=== PATIENT | male | born 1945 | race Caucasian/White ===

== ENCOUNTER 2018-04-21 09:19 | Outpatient (REF) | payer OTHER, SELFPAY ==
[2018-04-21 22:14] LABS: Anion Gap 12.3 mmol/L (3-11); BUN 29 mg/dL (7-18); CO2 23.7 mmol/L (21.0-32.0); CREATININE 1.09 mg/dL (0.70-1.30); Calcium 9.1 mg/dL (8.5-10.1); Chloride 104 mmol/L (98-107); Cholesterol 222 mg/dL (50-200); Glucose 114 mg/dL (70-100); HDL Cholesterol 53 mg/dL (40-60); LDL CHOLESTEROL 153 mg/dL (<100); Potassium 4.1 mmol/L (3.5-5.1); Sodium 140 mmol/L (136-145); Triglyceride 73 mg/dL (30-150)
== END 2018-04-21 09:39 ==
LOC: NCHCN 09:19
PROVIDERS: PCP Internal Medicine; Visit Provider Internal Medicine
DX: E78.6 Lipoprotein deficiency (principal); I10 Essential (primary) hypertension
CPT/HCPCS: 80048; 80061; 83721

== ENCOUNTER 2018-07-01 21:17 | Outpatient (REF) | payer OTHER, SELFPAY ==
[2018-07-01 21:25] LABS: Hemoglobin A1C 5.9 % (4.5-6.2)
== END 2018-07-01 21:37 ==
LOC: NCHCN 21:17
PROVIDERS: PCP Internal Medicine; Visit Provider Internal Medicine
DX: R73.9 Hyperglycemia, unspecified (principal)
CPT/HCPCS: 83036

== ENCOUNTER 2019-08-23 12:07 | Outpatient (REF) | payer OTHER, SELFPAY ==
[2019-08-23 21:57] LABS: Anion Gap 8.3 mmol/L (3-11); BUN 30 mg/dL (7-18); CO2 25.7 mmol/L (21.0-32.0); CREATININE 0.98 mg/dL (0.70-1.30); Calcium 9.2 mg/dL (8.5-10.1); Chloride 103 mmol/L (98-107); Glucose 90 mg/dL (74-106); Potassium 3.9 mmol/L (3.5-5.1); Sodium 137 mmol/L (136-145)
== END 2019-08-23 12:27 ==
LOC: NCHCN 12:07
PROVIDERS: PCP Internal Medicine; Visit Provider Nurse Practitioner Family
DX: M10.9 Gout, unspecified (principal); I10 Essential (primary) hypertension; R73.03 Prediabetes
CPT/HCPCS: 80048; 83036; 84550

== ENCOUNTER 2019-08-29 21:33 | Outpatient (REF) | payer OTHER, SELFPAY ==
[2019-08-29 21:46] LABS: HCT 40.4 % (40.0-50.0); HGB 13.7 g/dL (13.5-17.5); Mean Corp. HGB Concentration 33.9 g/dL (32.0-36.0); Mean Corpuscular Hemoglobin 33.3 pg (27.0-33.0); Mean Corpuscular Volume 98.1 fL (80-95); Platelet Count 161 x1000/uL (130-400); RBC 4.12 m/cumm (4.50-6.00); RBC Distribution Width 13.2 % (11.8-14.1)
[2019-08-29 22:27] LABS: TSH 0.93 uIU/mL (0.36-3.74); Vitamin B12 270 pg/mL (193-986)
[2019-08-31 12:45] LABS: Syphilis Serology (RPR) Negative (Negative)
== END 2019-08-29 21:53 ==
LOC: NCHCN 21:33
PROVIDERS: PCP Internal Medicine; Visit Provider Internal Medicine
DX: D64.9 Anemia, unspecified (principal); R41.3 Other amnesia
CPT/HCPCS: 85027; 82607; 84443; 86592

== ENCOUNTER 2020-11-28 16:11 | Outpatient (REF) | payer OTHER, SELFPAY ==
[2020-11-28 21:31] LABS: Abs Immature Grans 0.02 10^3/uL (0.0-0.06); Absolute Basophil Count 0.04 10^3/uL (0.0-0.2); Absolute Eosinophil Count 0.22 10^3/uL (0.0-0.7); Absolute Lymphocyte Count 0.79 10^3/uL (1.2-3.4); Absolute Monocyte Count 0.81 10^3/uL (0.1-0.8); Absolute Neutrophil Count 4.46 10^3/uL (1.2-6.7); Basophils % 0.6; Eosinophils % 3.5; HCT 36.9 % (40.0-50.0); HGB 12.7 g/dL (13.5-17.5); Immature Grans % 0.3; Lymphocytes % 12.5; MCH 33.2 pg (27.0-33.0); MCHC 34.4 % (32.0-36.0); MCV 96.6 fL (80-95); MPV 11.5 fL (8.0-11.0); Monocytes % 12.8; Neutrophils % 70.3; Nucleated RBC 0 %; Platelet Count 111 10^3/uL (130-400); RBC 3.82 10^6/uL (4.36-5.78); RDW 13.2 % (11.8-14.1); RDW-SD 46.5 fL; WBC 6.34 10^3/uL (4.4-10.8)
[2020-11-28 21:50] LABS: ALT 24 U/L (16-63); AST 21 U/L (15-37); Albumin 3.6 g/dL (3.4-5.0); Alkaline Phosphatase 73 U/L (46-116); Anion Gap 3.8 mmol/L (3-11); BUN 28 mg/dL (7-18); Bilirubin, Total 1.1 mg/dL (0.2-1.0); CO2 25.2 mmol/L (21.0-32.0); CREATININE 1.3 mg/dL (0.70-1.30); Calcium 8.7 mg/dL (8.5-10.1); Chloride 108 mmol/L (98-107); Estimated GFR 54.26 (mL/min/1.73m2); Glucose 92 mg/dL (74-106); Potassium 3.2 mmol/L (3.5-5.1); Sodium 137 mmol/L (136-145); TSH 1.14 uIU/mL (0.36-3.74); Total Protein 6.3 g/dL (6.4-8.2)
== END 2020-11-28 16:12 | disposition home or self-care (01) ==
LOC: NCHCN 16:11
PROVIDERS: PCP Internal Medicine; Visit Provider Internal Medicine
DX: R19.7 Diarrhea, unspecified (principal)
CPT/HCPCS: 80053; 84443; 85025

== ENCOUNTER 2020-12-04 11:53 | Outpatient (REF) | payer OTHER, SELFPAY ==
[2020-12-04 14:56] LABS: C Diff PCR Negative (Negative)
== END 2020-12-04 11:54 | disposition home or self-care (01) ==
LOC: NCHCN 11:53
PROVIDERS: PCP Internal Medicine; Visit Provider Internal Medicine
DX: R19.7 Diarrhea, unspecified (principal)
CPT/HCPCS: 87493

== ENCOUNTER 2020-12-07 14:30 | Outpatient (REF) | payer OTHER, SELFPAY ==
[2020-12-07 16:11] LABS: Iron 88 ug/dL (65-175); Total Iron Binding Capacity 254 ug/dL (250-450); Transferrin Sat 35 % (20-55)
[2020-12-07 16:35] LABS: Folate > 20.0 ng/mL (8.6-20.0)
[2020-12-07 17:12] LABS: Ferritin 344 ng/mL (26-388); Vitamin B12 379 pg/mL (193-986)
== END 2020-12-07 14:31 | disposition home or self-care (01) ==
LOC: NCHCN 14:30
PROVIDERS: PCP Internal Medicine; Visit Provider Nurse Practitioner Family
DX: D64.9 Anemia, unspecified (principal)
CPT/HCPCS: 82607; 82728; 82746; 83540; 83550; 85025; 85045

== ENCOUNTER 2021-03-13 16:33 | Outpatient (REF) | payer OTHER, SELFPAY ==
--- OUTSIDE RECORDS SUMMARY | 2021-03-13 16:35 | XMS_ITS | CCD ---
:1945 Author Care Team Providers Name Role Phone Akin VARGAS MD Attending Physician Unavailable Vital Signs Vital Sign Value Unit Date/Time Recent/Initial? BP Systolic 82 mmHg 12/11/2020 16:29 Initial VS BP Diastolic 54 mmHg 12/11/2020 16:29 Initial VS Respiratory Rate 16 bpm 12/11/2020 16:29 Initial VS Heart Rate 57 bpm 12/11/2020 16:29 Initial VS O2 % BldC Oximetry 99 % 12/11/2020 16:29 Initi al VS BP Systolic 112 mmHg 12/11/2020 16:52 Most Recent VS BP Diastolic 68 mmHg 12/11/2020 16:52 Most Recent VS Respiratory Rate 18 bpm 12/11/2020 16:52 Most Re cent VS Heart Rate 66 bpm 12/11/2020 16:52 Most Recent VS O2 % BldC Oximetry 97 % 12/11/2020 16:52 Most Recent VS Allergies Allergy Code Allergy Type Reaction Status HYDROCODONE 5489 Drug allergy ITCHING Active Procedures Procedure Code Procedure Type Date Colsc Flx w/Rmvl Of Tumor Polyp 81683 CPT 12/11/2020 Lesion Snare Tq Colsc Flx With Directed Submucosal 94533 CPT 12/11/2020 Njx Any Sbst History of Immunizations Unknown or Not Available. Problems Unknown or Not Available. Results Unknown or Not Available. Active Medications Unknown or Not Available. Medications Administered During Visit Unknown or Not Available. Encounters Encounter Diagnosis Diagnosis Code Start Date Other fecal abnormalities R195 12/11/2020 Social History Smoking Status Code Start Date End Date Former smoker [id number] 1965 1987 Patient Decision Aids Unknown or Not Available. Discharge Instructions You were admitted to [facility] on 12/11/2020 13:57 with a principal diagnosis of Other fecal abnormalities You had the following procedures done: Colsc Flx w/Rmvl Of Tumor Polyp Lesion Snare Tq Colsc Flx With Directed Submucosal Njx Any Sbst You were discharged from [facility] on 12/11/2020 17:18 Should you have any questions prior to d ischarge, please contact a member of your healthcare team. If you have left the ho spital and have any questions, please contact your primary care physician. Chief Complaint and Reason For Visit Unknown or Not Available. Function Status Unknown or Not Available. Plan of Care Unknown or Not Available. Referral/Transition of Care Unknown or Not Available.
--- OUTSIDE RECORDS SUMMARY | 2021-03-13 16:35 | XMS_ITS | CCD ---
:1945 Author Care Team Providers Name Role Phone LANDREY Attending Physician Unavailable Vital Signs Unknown or Not Available. Allergies Allergy Code Allergy Type Reaction Status HYDROCODONE 5489 Drug allergy ITCHING Active Procedures Unknown or Not Available. History of Immunizations Unknown or Not Available. Problems Unknown or Not Available. Results FECAL BACTERIAL PATHOGENS BY PCR - Colle ct Date/Time: 11/30/2020 15:00 Test Name Code Test Result Test Units Test Ref Range Salmonella PCR Negative N/A Negative Shigella PCR Negative N/A Negative Campylobacter PCR Negative N/A Negative Shiga Toxin PCR Negative N/A Negative GIARDIA AND CRYPTOSPORIDIUM EXAM (STOOL) - Collect Date/Time: 11/30/2020 15:00 Test Name Code Test Result Test Units Test Ref Range Giardia andCryptosporidium Cryptosporidium Antigen N/A (See Note) Neg and Giardia Antigen Neg Active Medications Unknown or Not Available. Medications Administered During Visit Unknown or Not Available. Encounters Encounter Diagnosis Diagnosis Code Start Date Diarrhea [id number] 11/30/2020 Social History Smoking Status Code Start Date End Date Former smoker [id number] 1965 1987 Patient Decision Aids Unknown or Not Available. Discharge Instructions You were admitted to [facility] on 11/30/2020 06:06 with a principal diagnosis of Diarrhea, unspecified You had the following tests done: FECAL BACTERIAL PATHOGENS BY PCR GIARDIA AND CRYPTOSPORIDIUM EXAM (STOOL) You were discharged from [facility] 01 on 11/30/2020 06:06 Should you have any questions prior to [...]
[2021-03-13 21:54] LABS: Anion Gap 9.7 mmol/L (3-11); BUN 30 mg/dL (7-18); CO2 26.3 mmol/L (21.0-32.0); CREATININE 1.1 mg/dL (0.70-1.30); Calcium 8.9 mg/dL (8.5-10.1); Chloride 105 mmol/L (98-107); Glucose 130 mg/dL (74-106); Potassium 3.5 mmol/L (3.5-5.1); Sodium 141 mmol/L (136-145)
== END 2021-03-13 16:34 | disposition home or self-care (01) ==
LOC: NCHCN 16:33
PROVIDERS: PCP Internal Medicine; Visit Provider Nurse Practitioner Family
DX: R19.7 Diarrhea, unspecified (principal)
CPT/HCPCS: 80048

== ENCOUNTER 2021-07-01 08:38 | Outpatient (REF) | payer MEDICARE, SELFPAY ==
[2021-07-01 21:34] LABS: Anion Gap 7.9 mmol/L (3-11); BUN 38 mg/dL (7-18); CO2 24.1 mmol/L (21.0-32.0); CREATININE 1.3 mg/dL (0.70-1.30); Calcium 8.8 mg/dL (8.5-10.1); Calculated LDL 74 mg/dL (<100); Chloride 104 mmol/L (98-107); Cholesterol 159 mg/dL (<200); Estimated GFR 54.11 (mL/min/1.73m2); Glucose 110 mg/dL (74-106); HDL Cholesterol 61 mg/dL (40-60); Potassium 4.3 mmol/L (3.5-5.1); Sodium 136 mmol/L (136-145); Triglyceride 122 mg/dL (<150)
== END 2021-07-01 08:39 | disposition home or self-care (01) ==
LOC: NCHCN 08:38
PROVIDERS: PCP Internal Medicine; Visit Provider Internal Medicine
DX: I10 Essential (primary) hypertension (principal)
CPT/HCPCS: 80048; 80061

== ENCOUNTER 2021-07-22 20:09 | Outpatient (REF) | payer MEDICARE, SELFPAY ==
[2021-07-22 21:03] LABS: Anion Gap 7.1 mmol/L (3-11); BUN 22 mg/dL (7-18); CO2 28.9 mmol/L (21.0-32.0); CREATININE 1.3 mg/dL (0.70-1.30); Calcium 8.6 mg/dL (8.5-10.1); Chloride 106 mmol/L (98-107); Estimated GFR 54.11 (mL/min/1.73m2); Glucose 92 mg/dL (74-106); Potassium 3.7 mmol/L (3.5-5.1); Sodium 142 mmol/L (136-145)
== END 2021-07-22 20:10 | disposition home or self-care (01) ==
LOC: NCHCN 20:09
PROVIDERS: PCP Internal Medicine; Visit Provider Nurse Practitioner Family
DX: I10 Essential (primary) hypertension (principal)
CPT/HCPCS: 80048

== ENCOUNTER 2022-04-16 17:35 | Outpatient (REF) | payer MEDICARE, SELFPAY ==
[2022-04-16 16:06] LABS: Anion Gap 8.6 mmol/L (3-11); BUN 23 mg/dL (7-18); CO2 26.4 mmol/L (21.0-32.0); CREATININE 1.2 mg/dL (0.70-1.30); Calcium 8.8 mg/dL (8.5-10.1); Chloride 105 mmol/L (98-107); Estimated GFR 63.46 (mL/min/1.73m2); Glucose 114 mg/dL (74-106); Potassium 3.9 mmol/L (3.5-5.1); Sodium 140 mmol/L (136-145); Vitamin B12 322 pg/mL (193-986)
[2022-04-16 16:14] LABS: Uric Acid 5.4 mg/dL (3.5-7.2)
== END 2022-04-16 17:36 | disposition home or self-care (01) ==
LOC: NCHCN 17:35
PROVIDERS: PCP Internal Medicine; Visit Provider Internal Medicine
DX: F03.90 Unspecified dementia, unspecified severity, without behavioral disturbance, psychotic disturbance, mood disturbance, and anxiety (principal); I10 Essential (primary) hypertension; M10.9 Gout, unspecified
CPT/HCPCS: 80048; 82607; 84550

== ENCOUNTER 2022-10-06 13:33 | Outpatient (REF) | payer MEDICARE, SELFPAY ==
[2022-10-06 15:51] LABS: Anion Gap 8.9 mmol/L (3-11); BUN 25 mg/dL (7-18); CO2 25.1 mmol/L (21.0-32.0); CREATININE 1.1 mg/dL (0.70-1.30); Chloride 107 mmol/L (98-107); Estimated GFR 70.44 (mL/min/1.73m2); Glucose 106 mg/dL (74-106); Potassium 4.4 mmol/L (3.5-5.1); Sodium 141 mmol/L (136-145)
[2022-10-06 16:26] LABS: Hemoglobin A1C 5.8 % (<5.7)
== END 2022-10-06 13:34 | disposition home or self-care (01) ==
LOC: NCHCN 13:33
PROVIDERS: PCP Internal Medicine; Visit Provider Internal Medicine
DX: E87.6 Hypokalemia (principal); R73.03 Prediabetes
CPT/HCPCS: 80048; 83036

== ENCOUNTER 2022-11-12 17:33 | Outpatient (REF) | payer MEDICARE, SELFPAY ==
[2022-11-12 21:24] LABS: Anion Gap 8.9 mmol/L (3-11); BUN 28 mg/dL (7-18); CO2 27.1 mmol/L (21.0-32.0); CREATININE 1.2 mg/dL (0.70-1.30); Calcium 9.1 mg/dL (8.5-10.1); Chloride 103 mmol/L (98-107); Estimated GFR 63.46 (mL/min/1.73m2); Glucose 127 mg/dL (74-106); Sodium 139 mmol/L (136-145)
== END 2022-11-12 17:34 | disposition home or self-care (01) ==
LOC: NCHCN 17:33
PROVIDERS: PCP Internal Medicine; Visit Provider Internal Medicine
DX: I10 Essential (primary) hypertension (principal)
CPT/HCPCS: 80048

== ENCOUNTER 2023-04-01 16:53 | Outpatient (REF) | payer MEDICARE, SELFPAY ==
[2023-04-01 20:53] LABS: HCT 40.8 % (40.0-50.0); HGB 14.1 g/dL (13.5-17.5); MCH 34.8 pg (27.0-33.0); MCHC 34.6 % (32.0-36.0); MCV 101 fL (80-95); MPV 10.7 fL (8.0-11.0); Platelet Count 145 10^3/uL (130-400); RBC 4.05 10^6/uL (4.36-5.78); RDW 12.9 % (11.8-14.1); RDW-SD 47.8 fL
[2023-04-01 21:17] LABS: Hemoglobin A1C 5.9 % (<5.7)
[2023-04-01 21:31] LABS: Vitamin B12 530 pg/mL (193-986)
== END 2023-04-01 16:54 | disposition home or self-care (01) ==
LOC: NCHCN 16:53
PROVIDERS: PCP Internal Medicine; Visit Provider Internal Medicine
DX: R73.03 Prediabetes (principal); E53.8 Deficiency of other specified B group vitamins
CPT/HCPCS: 85027; 82607; 83036

== ENCOUNTER 2023-08-14 15:07 | Outpatient (REF) | payer MEDICARE, SELFPAY ==
[2023-08-14 21:13] LABS: Anion Gap 8.5 mmol/L (3-11); BUN 22 mg/dL (7-18); CO2 26.5 mmol/L (21.0-32.0); CREATININE 1.2 mg/dL (0.70-1.30); Calcium 8.8 mg/dL (8.5-10.1); Chloride 106 mmol/L (98-107); Estimated GFR 63.07 (mL/min/1.73m2); Glucose 162 mg/dL (74-106); Potassium 3.8 mmol/L (3.5-5.1); Sodium 141 mmol/L (136-145)
== END 2023-08-14 15:08 | disposition home or self-care (01) ==
LOC: NCHCN 15:07
PROVIDERS: PCP Internal Medicine; Visit Provider Internal Medicine
DX: E87.6 Hypokalemia (principal)
CPT/HCPCS: 80048

== ENCOUNTER 2024-08-02 16:42 | Outpatient (REF) | payer MEDICARE, MEDICAID, SELFPAY | END 2024-08-02 16:43 | disposition home or self-care (01) | LOC: NCHCN 16:42 | PROVIDERS: PCP Internal Medicine; Visit Provider Physician Assistant | DX: R39.11 Hesitancy of micturition (principal); R82.89 Other abnormal findings on cytological and histological examination of urine | CPT/HCPCS: 87086 ==

== ENCOUNTER 2024-09-26 21:15 | Outpatient (REF) | payer MEDICARE, MEDICAID, SELFPAY ==
[2024-09-26 22:15] LABS: ALT 38 U/L (16-63); AST 27 U/L (15-37); Albumin 3.7 g/dL (3.4-5.0); Alkaline Phosphatase 76 U/L (46-116); Anion Gap 9.3 mmol/L (3-11); BUN 29 mg/dL (7-18); CO2 27.7 mmol/L (21.0-32.0); CREATININE 1.2 mg/dL (0.70-1.30); Calcium 9.1 mg/dL (8.5-10.1); Chloride 105 mmol/L (98-107); Estimated GFR 62.67 (mL/min/1.73m2); Glucose 179 mg/dL (74-106); Potassium 3.8 mmol/L (3.5-5.1); Sodium 142 mmol/L (136-145); Total Protein 7.1 g/dL (6.4-8.2)
== END 2024-09-26 21:16 | disposition home or self-care (01) ==
LOC: NCHCN 21:15
PROVIDERS: PCP Internal Medicine; Visit Provider Internal Medicine
DX: I10 Essential (primary) hypertension (principal)
CPT/HCPCS: 80053

== ENCOUNTER 2024-10-03 15:26 | Outpatient (REF) | payer MEDICARE, MEDICAID, SELFPAY ==
[2024-10-03 15:26] LABS: HCT 39.3 % (40.0-50.0); HGB 13.1 g/dL (13.5-17.5); MCH 34.8 pg (27.0-33.0); MCHC 33.3 % (32.0-36.0); MCV 105 fL (80-95); MPV 10.5 fL (8.0-11.0); Platelet Count 166 10^3/uL (130-400); RBC 3.76 10^6/uL (4.36-5.78); RDW 13.1 % (11.8-14.1); RDW-SD 50.4 fL; WBC 6.78 10^3/uL (4.4-10.8)
[2024-10-03 16:02] LABS: TSH 2.82 uIU/mL (0.36-3.74); Uric Acid 5.1 mg/dL (3.5-7.2)
[2024-10-03 16:18] LABS: Hemoglobin A1C 6.4 % (<5.7)
== END 2024-10-03 15:27 | disposition home or self-care (01) ==
LOC: NCHCN 15:26
PROVIDERS: PCP Internal Medicine; Visit Provider Internal Medicine
DX: R73.03 Prediabetes (principal); I10 Essential (primary) hypertension; L28.1 Prurigo nodularis; M10.9 Gout, unspecified
CPT/HCPCS: 85027; 83036; 84443; 84550